=== PATIENT | male | born 1950 ===

== ENCOUNTER → 2021-04-03 | Outpatient (CLI) | payer SELFPAY ==
[2021-04-03 14:14] LABS: Anion Gap 6 mmol/L (6-16); Blood Urea Nitrogen 19 mg/dL (8-24); Bun/Creatinine Ratio 17.1 (12.0-20.0); CO2, Blood 32 mmol/L (21-32); Chloride, Blood 101 mmol/L (98-108); Creatinine, Blood 1.11 mg/dL (0.60-1.20); Glomerular Filtration Rate >60 (60-); Glucose, Blood 92 mg/dL (70-99); Potassium, Blood 4.1 mmol/L (3.5-5.5); Sodium, Blood 139 mmol/L (136-145)
== END | disposition home or self-care (01) ==
LOC: LAB SHORT 14:05
PROVIDERS: Family Medicine
DX: I10 Essential (primary) hypertension (principal)
CPT/HCPCS: 80048

== ENCOUNTER 2023-11-22 21:45 | Emergency (ER) | payer MEDICARE ==
[~2023-11-22] VITALS: Ht 195.6 cm; Wt 99.8 kg
[2023-11-22 22:11] VITALS: BP 205/87
== END 2023-11-22 23:34 | disposition home or self-care (01) ==
LOC: ER 21:45
DX: S92.511A Displaced fracture of proximal phalanx of right lesser toe(s), initial encounter for closed fracture (principal); W22.03XA Walked into furniture, initial encounter
CPT/HCPCS: 73660; 99283-25